=== PATIENT | female | born 1970 | race Caucasian/White ===

== ENCOUNTER → 2020-05-16 | Outpatient (CLI) | payer BC ==
[~2020-05-16] MED LIST: IBUPROFEN600 MG PO
== END ==
LOC: EROP 14:19
DX: Z20.822 Contact with and (suspected) exposure to COVID-19 (principal)
CPT/HCPCS: U0002

== ENCOUNTER → 2020-07-19 | Outpatient (CLI) | payer BC ==
[2020-07-19 14:39] LABS: BUN/CREATININE RATIO 20 (0-10)
== END ==
LOC: LAB 12:34
PROVIDERS: Nurse Practitioner Family
DX: R53.83 Other fatigue (principal); E88.81 Metabolic syndrome and other insulin resistance; E78.2 Mixed hyperlipidemia; E55.9 Vitamin D deficiency, unspecified
CPT/HCPCS: 36415; 80053; 80061; 83036; 84439; 84443

== ENCOUNTER 2020-08-12 11:38 | Emergency (ER) | payer BC ==
[2020-08-12 12:43] LABS: RED BLOOD COUNT 4.4 M/UL (4.00-5.10); WHITE BLOOD COUNT 8.9 K/UL (4.5-11.0)
[2020-08-12 13:04] LABS: BUN/CREATININE RATIO 16 (0-10)
[2020-08-12] MEDS ORDERED: IBUPROFEN600 MG PO (15:25)
== END 2020-08-12 15:49 | disposition home or self-care (01) ==
LOC: ER1 11:38
PROVIDERS: Internal Medicine
DX: M25.511 Pain in right shoulder (principal); I10 Essential (primary) hypertension; Z90.49 Acquired absence of other specified parts of digestive tract
CPT/HCPCS: 71045; 80053; 82550; 82553; 83874; 84484; 85025; 93005; 99284

== ENCOUNTER → 2021-02-07 | Outpatient (CLI) | payer BC ==
[2021-02-07 08:37] LABS: HEMOGLOBIN 13.9 gm/dl (12.3-15.3); RED BLOOD COUNT 4.48 M/UL (4.00-5.10); WHITE BLOOD COUNT 9.3 K/UL (4.5-11.0)
[2021-02-07 09:08] LABS: BUN/CREATININE RATIO 17 (0-10)
[2021-02-08 08:14] LABS: VITAMIN D, 25-HYDROXY 45.9 ng/mL (30.0-100.0)
[2021-02-08 11:14] LABS: INSULIN 11.9 uIU/mL (2.6-24.9)
== END ==
LOC: LAB 07:30
PROVIDERS: Nurse Practitioner Family
DX: E78.2 Mixed hyperlipidemia (principal); E55.9 Vitamin D deficiency, unspecified; R53.83 Other fatigue; R63.5 Abnormal weight gain
CPT/HCPCS: 36415; 80053; 80061; 84443; 85025; 86038

== ENCOUNTER → 2021-02-26 | Outpatient (CLI) | payer BC | LOC: MAMO 09:54 | DX: Z12.31 Encounter for screening mammogram for malignant neoplasm of breast (principal) | CPT/HCPCS: 77063; 77067 ==

== ENCOUNTER → 2021-05-31 | Outpatient (CLI) | payer BC | LOC: US 13:57 | DX: R13.10 Dysphagia, unspecified (principal) | CPT/HCPCS: 76536 ==

== ENCOUNTER → 2021-08-14 | Outpatient (CLI) | payer BC | LOC: LAB 07:18 | DX: E03.9 Hypothyroidism, unspecified (principal) | CPT/HCPCS: 36415; 84439; 84443 ==

== ENCOUNTER → 2021-12-12 | Outpatient (CLI) | payer BC ==
[2021-12-12 11:11] LABS: BUN/CREATININE RATIO 20 (0-10)
[2021-12-17 14:11] LABS: CHOLESTEROL, TOTAL 144 mg/dL (100-199); HDL CHOLESTEROL 59 mg/dL (>39); LDL CHOLESTEROL CALC 62 mg/dL (0-99); LDL/HDL RATIO 1.1 ratio (0.0-3.2); T. CHOL/HDL RATIO 2.4 ratio (0.0-4.4); TRIGLYCERIDES 130 mg/dL (0-149)
[2021-12-17 15:11] LABS: HEMOGLOBIN A1C 5.8 % (4.8-5.6)
== END ==
LOC: LAB 07:00
PROVIDERS: Nurse Practitioner Family
DX: M25.511 Pain in right shoulder (principal); E88.81 Metabolic syndrome and other insulin resistance; E03.9 Hypothyroidism, unspecified; E78.2 Mixed hyperlipidemia
CPT/HCPCS: 36415; 73030; 80053; 80061; 83036; 84443